=== PATIENT | female | born 1970 | race African-American/Black ===

== ENCOUNTER 2016-06-24 14:06 | Emergency (ER) | payer MEDICAID, OTHER ==
[~2016-06-24] VITALS: Ht 165.1 cm; Wt 83.0 kg
[2016-06-24] MEDS ORDERED: IBUP-1510 PO (14:39)
[2016-06-24] MEDS ORDERED: CEFTRIAXONE SODIUM 500 MG/VIAL IM ONE (15:30)
[2016-06-24] MEDS ORDERED: KETOROLAC 60MG/2ML VIAL IM ONE (15:30)
[2016-06-24 15:50] VITALS: BP 120/68
== END 2016-06-24 16:53 | disposition home or self-care (01) ==
LOC: ER 16:01
DX: K08.89 Other specified disorders of teeth and supporting structures (principal); R22.0 Localized swelling, mass and lump, head; R03.0 Elevated blood-pressure reading, without diagnosis of hypertension; Z88.0 Allergy status to penicillin; Z88.1 Allergy status to other antibiotic agents
CPT/HCPCS: 96372; 99284; J0696; J1885; Z7610

== ENCOUNTER 2017-08-16 09:07 | Emergency (ER) | payer OTHER ==
[~2017-08-16] VITALS: Ht 165.1 cm; Wt 87.0 kg
[~2017-08-16 09:07] MED LIST: IBUP-2030 PO
[2017-08-16 09:20] VITALS: BP 122/65
[2017-08-16] MEDS ORDERED: HYDROCODONE/APAP 7.5/325MG 1 TAB TABLET PO ONE (13:45)
[2017-08-16] MEDS ORDERED: ACETAMINOPHEN 500MG TABLET PO ONE (14:45)
== END 2017-08-16 15:01 | disposition home or self-care (01) ==
LOC: ER 09:07
DX: S16.1XXA Strain of muscle, fascia and tendon at neck level, initial encounter (principal); S09.90XA Unspecified injury of head, initial encounter; Z88.0 Allergy status to penicillin; Y08.89XA Assault by other specified means, initial encounter; Y93.89 Activity, other specified; Y92.89 Other specified places as the place of occurrence of the external cause; Y99.8 Other external cause status
CPT/HCPCS: 70450; 72125; 81025; 99284

== ENCOUNTER 2019-04-03 11:03 | Inpatient (IN) | payer MEDICAID ==
[~2019-04-03] VITALS: Ht 165.1 cm; Wt 93.4 kg
[2019-04-03] MEDS ORDERED: TRAM50TA3 PO (11:08)
[2019-04-03] MEDS ORDERED: ONDANSETRON HCL 4MG/2ML INJ IV STA (12:00)
[2019-04-03] MEDS ORDERED: MORPHINE SULFATE 4 MG/ML CPJ (NOT FOR IM USE) IV STA (12:00)
[2019-04-03 12:53] LABS: BASOPHILS % 0.7 % (0.0-2.0); EOSINOPHILS % 4.1 % (0.0-5.0); HEMATOCRIT. 37.5 % (36.0-48.0); HEMOGLOBIN. 12.5 g/dL (12.0-16.0); LYMPHOCYTES % 39.3 % (20.0-50.0); MEAN CORPUSCULAR HEMOGLOBIN 29.1 pg (28.0-32.0); MEAN CORPUSCULAR VOLUME 87.5 fL (81.0-99.0); MEAN PLATELET VOLUME 8.5 fl (7.4-10.4); MONOCYTES % 11.7 % (2.0-8.0); NEUTROPHILS % 44.2 % (40.0-76.0); PLATELET 175 x1000/uL (130-400); RED BLOOD CELL COUNT 4.29 mill/uL (4.2-5.4); RED CELL DISTRIBUTION WIDTH 14.3 % (11.6-14.6)
[2019-04-03 12:59] LABS: CHLORIDE 108 mEq/L (98-107)
[2019-04-03 13:01] LABS: INR 1.1; PROTHROMBIN TIME 10.9 sec (9.6-11.0)
[2019-04-03 14:10] LABS: CLARITY URINE CLEAR (CLEAR); COLOR URINE YELLOW (YELLOW); KETONES URINE NEGATIVE (NEGATIVE); LEUKOCYTE ESTERASE URINE NEGATIVE (NEGATIVE); NITRITE URINE NEGATIVE (NEGATIVE); OCCULT BLOOD URINE NEGATIVE (NEGATIVE); PH URINE 7.5 (4.5-8.0); PROTEIN URINE NEGATIVE (NEGATIVE)
[2019-04-03] MEDS ORDERED: ONDANSETRON HCL 4MG/2ML INJ IV PRN (18:00)
[2019-04-03] MEDS ORDERED: ACETAMINOPHEN 325MG TABLET PO PRN (18:00)
[2019-04-03] MEDS: KETOROLAC 30MG/ML VIAL IV PRN (18:49)
[2019-04-03 20:30] VITALS: BP 108/59
[2019-04-03] MEDS ORDERED: CITA40TA22 MT (21:22)
[2019-04-03] MEDS: ENOXAPARIN 30MG/0.3ML SYR SUBCUT SCH (21:46)
[2019-04-04] VITALS: BP 96/62
[2019-04-04 04:00] VITALS: BP 146/77
[2019-04-04] MEDS: KETOROLAC 30MG/ML VIAL IV PRN ×2 (04:52→11:07)
[2019-04-04 06:24] LABS: BASOPHILS % 0.4 % (0.0-2.0); EOSINOPHILS % 3.6 % (0.0-5.0); HEMATOCRIT. 35.7 % (36.0-48.0); LYMPHOCYTES % 42.4 % (20.0-50.0); MEAN CORPUSCULAR HEMOGLOBIN 29.1 pg (28.0-32.0); MEAN CORPUSCULAR VOLUME 86.4 fL (81.0-99.0); MEAN PLATELET VOLUME 8.8 fl (7.4-10.4); MONOCYTES % 11.3 % (2.0-8.0); NEUTROPHILS % 42.3 % (40.0-76.0); PLATELET 176 x1000/uL (130-400); RED BLOOD CELL COUNT 4.14 mill/uL (4.2-5.4); RED CELL DISTRIBUTION WIDTH 14.2 % (11.6-14.6)
[2019-04-04 06:29] LABS: CHLORIDE 108 mEq/L (98-107)
[2019-04-04 08:00] VITALS: BP 100/60
[2019-04-04] MEDS: ENOXAPARIN 30MG/0.3ML SYR SUBCUT SCH (09:04)
[2019-04-04 11:19] LABS: *AMPHETAMINES SCREEN URINE NEGATIVE (NEGATIVE)
[2019-04-04 11:20] LABS: *BARBITURATES SCREEN URINE NEGATIVE (NEGATIVE); *BENZODIAZEPINES SCREEN URINE PRESUMTIVE POSITIVE (NEGATIVE); *COCAINE SCREEN URINE NEGATIVE (NEGATIVE); CANNABINOID URINE SCREEN NEGATIVE (NEGATIVE); METHADONE URINE SCREEN NEGATIVE (NEGATIVE); OPIATES URINE SCREEN NEGATIVE (NEGATIVE); PHENCYCLIDINE URINE SCREEN NEGATIVE (NEGATIVE)
[2019-04-04 12:00] VITALS: BP 108/54
[2019-04-04 16:00] VITALS: BP 115/77
[2019-04-04 17:25] VITALS: BP 115/77
== END 2019-04-04 18:15 | disposition home or self-care (01) | DRG 351 ==
LOC: ER 11:03 → 5WST 16:54 → EDBEDREQ 16:57 → ENRESERV 19:08 → EDBEDREQTM 19:40
PROVIDERS: ADMIT Internal Medicine; ATTEND Internal Medicine
DX: M77.9 Enthesopathy, unspecified (principal); E87.8 Other disorders of electrolyte and fluid balance, not elsewhere classified; E66.9 Obesity, unspecified; F17.210 Nicotine dependence, cigarettes, uncomplicated; Z88.0 Allergy status to penicillin; Z79.899 Other long term (current) drug therapy; Z98.891 History of uterine scar from previous surgery; Z71.3 Dietary counseling and surveillance
CPT/HCPCS: 36415; 71045; 72141; 73030; 80048; 80053; 80061; 80305; 81003; 84484; 85025; 93005; 99285; J1650; J1885; J2270; J2405

== ENCOUNTER 2020-03-07 11:29 | Emergency (ER) | payer MEDICAID, OTHER ==
[~2020-03-07] VITALS: Ht 165.1 cm; Wt 90.0 kg
[~2020-03-07 11:29] MED LIST changes: +CITA40TA22 MT; -IBUP-2030 PO; +TRAM50TA3 PO
[2020-03-07 11:35] VITALS: BP 117/76
== END 2020-03-07 12:49 | disposition home or self-care (01) ==
LOC: ER 11:49
DX: L42 Pityriasis rosea (principal)
CPT/HCPCS: 99282